=== PATIENT | male | born 1990 | race Caucasian/White ===

== ENCOUNTER 2020-12-15 07:20 | Outpatient (CLI) | payer SELFPAY | END 2020-12-15 07:21 | disposition home or self-care (01) | LOC: RT 07:20 | PROVIDERS: Visit Provider Nurse Practitioner Family | DX: Z02.79 Encounter for issue of other medical certificate (principal) | CPT/HCPCS: 94010 ==

== ENCOUNTER 2023-10-17 02:23 | Outpatient (CLI) | payer BC, SELFPAY ==
[2023-10-17 08:44] LABS: HCT 45.4 % (40.0-50.0); HGB 15.9 g/dL (13.5-17.5); MCH 32.1 pg (27.0-33.0); MCV 92 fL (80-95); MPV 8.9 fL (8.0-11.0); Platelet Count 218 10^3/uL (130-400); RBC 4.95 10^6/uL (4.36-5.78); RDW 12.3 % (11.8-14.1); WBC 6.15 10^3/uL (4.4-10.8)
[2023-10-17 09:53] LABS: ALT 23 U/L (16-63); AST 18 U/L (15-37); Albumin 4.3 g/dL (3.4-5.0); Alkaline Phosphatase 67 U/L (46-116); Anion Gap 4.6 mmol/L (3-11); BUN 19 mg/dL (7-18); CO2 30.4 mmol/L (21.0-32.0); CREATININE 1.1 mg/dL (0.70-1.30); Calcium 9.1 mg/dL (8.5-10.1); Chloride 101 mmol/L (98-107); Estimated GFR 92.04 (mL/min/1.73m2); Glucose 93 mg/dL (74-106); Sodium 136 mmol/L (136-145); Total Protein 7.8 g/dL (6.4-8.2)
== END 2023-10-17 02:24 | disposition home or self-care (01) ==
LOC: LBO 02:24
PROVIDERS: PCP Nurse Practitioner Family; Referring Provider Nurse Practitioner Family; Visit Provider Nurse Practitioner Family
DX: F43.23 Adjustment disorder with mixed anxiety and depressed mood (principal)
CPT/HCPCS: 36415; 80053; 85027; 84443

== ENCOUNTER 2023-10-24 08:35 | Outpatient (CLI) | payer BC, SELFPAY ==
--- NOTE | 2023-10-24 08:30 | RT.EKG_ITS ---
APPROVED REPORT Exam: Resting ECG Reason for Exam: Medication management. Starting new medication. Patient Location: O HR:53 bpm ECG Measurements Heart Rate 53 AXIS DC 140 P 29 QRSd 89 QRS 54 QT 426 T 55 QTc 400 Conclusion Sinus rhythm...normal P axis, V-rate 50- 99 Normal Electrocardiogram
== END 2023-10-24 08:36 | disposition home or self-care (01) ==
LOC: DI.KIM 08:36
PROVIDERS: PCP Nurse Practitioner Family; Visit Provider Nurse Practitioner Family
DX: Z79.899 Other long term (current) drug therapy (principal); Z00.00 Encounter for general adult medical examination without abnormal findings
CPT/HCPCS: 93010

== ENCOUNTER 2023-11-01 01:02 | Outpatient (CLI) | payer BC, SELFPAY ==
[2023-11-01 09:49] LABS: Calculated LDL 86 mg/dL (<100); Cholesterol 147 mg/dL (<200); HDL Cholesterol 46 mg/dL (40-60); Triglyceride 75 mg/dL (<150)
== END 2023-11-01 01:03 | disposition home or self-care (01) ==
LOC: LBO 01:02
PROVIDERS: PCP Nurse Practitioner Family; Referring Provider Nurse Practitioner Family; Visit Provider Nurse Practitioner Family
DX: Z00.00 Encounter for general adult medical examination without abnormal findings (principal)
CPT/HCPCS: 36415; 80061; 83036

== ENCOUNTER 2023-11-07 08:32 | Outpatient (RCR) | payer BC, SELFPAY ==
--- NOTE | 2023-11-07 11:00 | HOLTER_ITS ---
APPROVED REPORT Conclusion This is a 48-hour Holter monitor Rhythm throughout was sinus with an average heart rate of 64. Minimum was 45, maximum 138 There were occasional to frequent premature ventricular contractions There were rare atrial premature beats There was no atrial fibrillation, no high-grade AV block, no pauses greater than 3 seconds No patient symptoms were reported
== END 2023-11-23 23:59 | disposition home or self-care (01) ==
LOC: CARDOPNVT 08:32
PROVIDERS: PCP Nurse Practitioner Family; Visit Provider Internal Medicine Cardiovascular Disease
DX: R00.2 Palpitations (principal)
CPT/HCPCS: 93225; 93226

== ENCOUNTER 2024-05-22 08:23 | Outpatient (CLI) | payer BC, SELFPAY ==
--- NOTE | 2024-05-22 08:15 | RT.EKG_ITS ---
APPROVED REPORT Exam: Resting ECG Reason for Exam: irregular heart beats Patient Location: O HR:60 bpm ECG Measurements Heart Rate 60 AXIS ME 147 P 49 QRSd 89 QRS 48 QT 403 T 49 QTc 403 Conclusion Sinus rhythm...normal P axis, V-rate 50- 99 Premature ventricular contraction Otherwise normal
== END 2024-05-22 08:24 | disposition home or self-care (01) ==
LOC: DI.KIM 08:23
PROVIDERS: PCP Nurse Practitioner Family; Visit Provider Nurse Practitioner Family
DX: I49.9 Cardiac arrhythmia, unspecified (principal)
CPT/HCPCS: 93010